=== PATIENT | female | born 1955 | race Caucasian/White ===

== ENCOUNTER 2024-07-03 08:13 | Outpatient (REF) | payer MEDICARE, SELFPAY ==
--- NOTE | ~2024-07-03 | XR_ITS ---
EXAMINATION: XR PELVIS CLINICAL INFORMATION: Hip pain COMPARISON: None available. TECHNIQUE: AP view of the pelvis. FINDINGS: No fracture. Hip joint spaces are maintained. The femoral heads are smooth. Alignment is anatomic. Sacroiliac joints and pubic symphysis are normal. No abnormal soft tissue calcifications. There are pelvic phleboliths. There are incompletely characterized degenerative changes of the lower lumbar spine. XR/XR pelvis 1-2V IMPRESSION: Unremarkable pelvis. Electronically signed by: Jose Post MD 07/30/2024 08:11 PM EDT RP
== END 2024-07-03 08:14 | disposition home or self-care (01) ==
LOC: HO.HOSX 08:13
PROVIDERS: Visit Provider Orthopaedic Surgery
DX: M25.559 Pain in unspecified hip (principal); M16.11 Unilateral primary osteoarthritis, right hip
CPT/HCPCS: 72170; 99202

== ENCOUNTER 2024-07-03 10:41 | Outpatient (AMB) | payer MEDICARE, SELFPAY ==
--- NOTE | 2024-07-03 11:25 | A.OFFVIS_ITS ---
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 Patient reports that she has had ongoing right hip pain for manly years now. She has history of intra-articular injection about 3 years ago which was very helpful. This gave her relief for about 3 months. She has pain all the time, worsened with increased activity. The pain is describes as a burning pain in the groin and buttock. Her pain does not radiate. 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 pain. She has occasional groin pain. It has gotten worse over the last month. She describes difficulty with sitting in daily activities. [facility] Surgical History (Updated 07/03/24 @ 11:31 by Amber Upton [facility]) H/O: section History of cholecystectomy Status post carpal tunnel release of both wrists History of right knee surgery Physical Exam Extrem Other: On exam she has minimal to no groin pain with impingement testing. Results Reviewed Results Reviewed: Mild bilateral hip osteoarthritis Assessment & Plan Assessment & Plan (1) Primary osteoarthritis of right hip: Code(s): M16.11 - Unilateral primary osteoarthritis, right hip Category: Medical Plan: This is a 68-year-old woman with mild hip arthritis and some pain. I discussed treatment options and recommended an injection with pain management. A referral was made. If this is helpful she can return to see me but her x-rays are unimpressive. Orders: Orders XR pelvis 1-2V 07/03/24 M25.559 - Pain in unspecified hip Referrals Pain Management Referral M16.11 - Unilateral primary osteoarthritis, right hip Coding Level of Care Code New Pt Level 3 (16251) Diagnoses Primary osteoarthritis of right hip M16.11
== END 2024-07-03 12:09 | disposition home or self-care (01) ==
PROVIDERS: PCP Nurse Practitioner Family; Visit Provider Orthopaedic Surgery
DX: M16.11 Unilateral primary osteoarthritis, right hip (principal)
CPT/HCPCS: 99203

== ENCOUNTER 2024-07-31 09:34 | Outpatient (AMB) | payer MEDICARE, SELFPAY ==
[2024-07-31 09:43] VITALS: BP 121/75; PULSE 81; O2SAT 97; BMI 36.9
--- NOTE | 2024-07-31 09:43 | MHC.OFFVIS ---
Vital Signs 07/31/24 09:43 Height 5 ft 4 in Weight 215 lb BMI 36.9 BP 121/75 Blood Pressure Location Rt brachial Position Sitting Pulse 81 Pulse Source Pulse Oximeter Pulse Oximetry (%) 97 Oxygen Delivery Method Room Air Intake Visit Reasons: Unilateral primary osteoarthritis, right hip Allergies meperidine [From Demerol] Allergy (Verified 07/31/24 09:44) Vomiting medrol dose pack Allergy (Uncoded 07/31/24 09:44) Hypertension Medication List - Last Reconciled 07/31/24 by Daniela Salazar amlodipine 5 mg PO DAILY atorvastatin 10 mg PO DAILY bupropion HCl XL 150 mg PO QAM escitalopram oxalate 10 mg PO DAILY levothyroxine 150 mcg PO .6x a week naltrexone 25 mg PO DAILY HPI Comments Details: Patrice is a very pleasant 68-year-old female who presents to the office today for evaluation management of her chronic right hip pain She was recently evaluated by Orthopedics and referred here for consideration of a right intra-articular hip injection Patient states she has been suffering with this pain for many years, about 3 years ago she had a right hip injection which gave her several months of relief. She is followed by ortho with the have not offer any other options. Told she is not a surgical candidate at this time as they congestion for hip does not warrant surgery recent hip and pelvis x-ray reviewed, results as per below Patient is going on vacation and is concerned about a pain with all the increased walking she will be doing Patient endorses anterior hip pain, right groin pain without radiation. Pain with walking and activity. Patient is done extensive home exercise program and stretching with Pilates but pain persists Finds relief with ibuprofen. Pain today is rated as 710, constant. Worse after activity/walking. In terms of muscle damage condition is described as dull, sore, aching, stabbing Pain is negatively impacting patient's enjoyment of life, general activity, sleep and recreational activities Denies implantable devices, pacemaker or defibrillator Denies nicotine or tobacco use Denies alcohol or illicit substance use Denies current use of anticoagulants PFSH Medical History (Updated 07/31/24 @ 11:13 by Codi Novak APRN, SHEET METAL LAYOUT MECHANIC) Arthritis High cholesterol Hypertension Hypothyroid Surgical History (Updated 07/03/24 @ 11:31 by Amber Upton [facility]) H/O: section History of cholecystectomy Status post carpal tunnel release of both wrists History of right knee surgery Review of Systems Const All systems reviewed & are unremarkable except as noted in HPI and below Physical Exam Vital Signs: Last Vital Signs Pulse 81 07/31/24 09:43 BP 121/75 07/31/24 09:43 Pulse Ox 97 07/31/24 09:43 Oxygen Delivery Method Room Air 07/31/24 09:43 BMI result Body Mass Index 36.9 General: awake, alert, oriented. Answers questions appropriately. Fully engaged in examination. Skin: warm, dry, intact HEENT: Normocephalic. Hearing intact. Cardiac: External chest normal in appearance. Respiratory: No cough, audible wheezing or stridor. Abdomen: without gross distension. MS: No obvious swelling or deformities. Able to transition from sit to stand unassisted. Ambulates with bilaterally normal heel strike and toe off Nontender over right PSIS Ga[place] negative Thigh thrust negative Pain with external rotation of the right hip Neurological: Oriented to person, place, time and situation. Thought process intact. No gait abnormalities appreciated. Psychiatric: Appropriate mood and affect. Good judgment and insight. Results Reviewed Results Reviewed: 07/03/24 XR/XR pelvis 1-2V No fracture. Hip joint spaces are maintained. The femoral heads are smooth. Alignment is anatomic. Sacroiliac joints and pubic symphysis are normal. No abnormal soft tissue calcifications. There are pelvic phleboliths. There are incompletely characterized degenerative changes of the lower lumbar spine. IMPRESSION: Unremarkable pelvis. Assessment & Plan Assessment & Plan (1) Primary osteoarthritis of right hip: Code(s): M16.11 - Unilateral primary osteoarthritis, right hip Category: Medical Plan Meloxicam 7.5 mg daily, take with food, do not take with the nasal nonsteroidal anti-inflammatory medications. Methocarbamol 500 mg p.o. t.i.d. as needed. Patient advised on cautions for use Patient was given a prescription for prednisone 40 mg p.o. daily she will not be able to receive this injection before she goes on vacation. She was advised to use this only if the pain becomes significantly worse after the excessive walking while on her trip. Patient has exhausted conservative therapy including home exercise program, stretching, nonsteroidal anti-inflammatory medications. We will schedule for fluoroscopy guided right intra-articular hip injection with local anesthetic. All questions and concerns were answered, patient agrees with the plan. Follow up after injection, sooner if needed Medications: New meloxicam Do not take with any other nonsteroidal anti-inflammatory medications 7.5 mg PO DAILY 14 tabs 0RF methocarbamol No driving while taking this medication. Do no take with alcohol or other SATELLITE PROJECT SITE MONITOR Depressants 500 mg PO TID PRN 30 tabs 0RF muscle spasm prednisone 40 mg (2 x 20 mg) PO DAILY 10 tabs 0RF Coding Level of Care Code New Pt Level 4 (33742) Complex EM visit Add On G2211 Diagnoses Primary osteoarthritis of right hip M16.11
== END 2024-07-31 10:24 | disposition home or self-care (01) ==
PROVIDERS: PCP Nurse Practitioner Family; Visit Provider Registered Nurse Emergency
DX: M16.11 Unilateral primary osteoarthritis, right hip (principal)
CPT/HCPCS: 99204; G2211

== ENCOUNTER → 2024-07-31 09:34 | Outpatient (BNVA) | payer MEDICARE, SELFPAY | PROVIDERS: PCP Nurse Practitioner Family; Visit Provider Registered Nurse Emergency | DX: M16.11 Unilateral primary osteoarthritis, right hip (principal) | CPT/HCPCS: 99202 ==

== ENCOUNTER 2024-09-16 06:19 | Outpatient (REF) | payer MEDICARE, SELFPAY | END 2024-09-16 06:20 | disposition home or self-care (01) | LOC: CF 06:19 | PROVIDERS: Visit Provider Anesthesiology | DX: M16.11 Unilateral primary osteoarthritis, right hip (principal) | CPT/HCPCS: 20610; J2003; J2795; J3301; Q9967 ==

== ENCOUNTER 2024-09-16 13:28 | Outpatient (AMB) | payer MEDICARE, SELFPAY ==
--- NOTE | 2024-09-16 13:35 | MHC.OFFVIS ---
Vital Signs 09/16/24 14:26 09/16/24 14:27 Height 5 ft 4 in 5 ft 4 in Weight 215 lb 215 lb BMI 36.9 36.9 BP 104/72 126/78 Blood Pressure Location Lt brachial Lt brachial Position Sitting Sitting Respiration 17 16 Pulse 75 63 Pulse Source Pulse Oximeter Pulse Oximeter Pulse Oximetry (%) 98 98 Oxygen Delivery Method Room Air Room Air Comment pre-op post-op Intake Visit Reasons: RIGHT INTRA-ARTICULAR HIP INJECTION Allergies meperidine [From Demerol] Allergy (Verified 09/16/24 14:28) Vomiting medrol dose pack Allergy (Uncoded 07/31/24 09:44) Hypertension PFSH Medical History (Updated 07/31/24 @ 11:13 by Codi Novak APRN, ASSOCIATE THEATRE PROFESSOR) Arthritis High cholesterol Hypertension Hypothyroid Surgical History (Updated 07/03/24 @ 11:31 by Amber Upton [facility]) H/O: section History of cholecystectomy Status post carpal tunnel release of both wrists History of right knee surgery Physical Exam Vital Signs: Last Vital Signs Pulse 63 09/16/24 14:27 Resp 16 09/16/24 14:27 BP 126/78 09/16/24 14:27 Pulse Ox 98 09/16/24 14:27 Oxygen Delivery Method Room Air 09/16/24 14:27 BMI result Body Mass Index 36.9 Assessment & Plan Assessment & Plan (1) Primary osteoarthritis of right hip: Code(s): M16.11 - Unilateral primary osteoarthritis, right hip Category: Medical Plan Right Intra-articular hip injection. Informed consent was explained to the patient. All questions were explained and answered.? The patient was taken inside of the operating room where he was positioned left lateral decubitus on operating table. Time-out was performed delineating patient's name and date of , correct site, side, the nature of the procedure, patient's allergy, preoperative antibiotic if needed, need for VT prophylaxis..? All operating room staff was participating in OR time-out procedure. Right hip area of the patient was prepped with ChloraPrep and draped with sterile towels.? Sterilely draped C-arm was brought over the operating field and picture of left and right lateral views of the bilateral hip joints were delineated on the screen.? The smaller joint silhouette was chosen as the target.? Direction of the femoral neck was noted and the projection of that direction was delineated on the skin with skin markers.? Projection of the right trochanter to the skin was chosen as the initial needle insertion point.? After that the skin and subcutaneous tissues was anesthetized with 2% lidocaine 2.5 mL.? 22 gauge 5 in long needle was inserted through the skin and started to advance to the joint space under anterior posterior view.? When needle entered the capsule of the joint small amount of the contrast was injected delineating intra-articular space.? After that treatment solution containing ropivacaine 0.5% 4 mL mixed with 40 mg of Kenalog was injected into the joint.? The needle was withdrawn sterile Band-Aid was applied. Orders: Orders FL guidance in treatment room 09/16/24 M16.11 - Unilateral primary osteoarthritis, right hip Coding Level of Care Code Procedure Only Diagnoses Primary osteoarthritis of right hip M16.11
[2024-09-16 14:26] VITALS: BP 104/72; PULSE 75; RESP 17; O2SAT 98; BMI 36.9
[2024-09-16 14:27] VITALS: BP 126/78; PULSE 63; RESP 16; O2SAT 98; BMI 36.9
== END 2024-09-16 14:20 | disposition home or self-care (01) ==
LOC: HO.PMCPRC 13:28
PROVIDERS: PCP Nurse Practitioner Family; Visit Provider Anesthesiology
DX: M16.11 Unilateral primary osteoarthritis, right hip (principal)
CPT/HCPCS: 20610; 77002

== ENCOUNTER 2024-10-08 13:35 | Outpatient (AMB) | payer MEDICARE, SELFPAY ==
[2024-10-08 13:57] VITALS: BP 128/74; PULSE 74; O2SAT 96; BMI 34.0
--- NOTE | 2024-10-08 13:57 | MHC.OFFVIS ---
Vital Signs 10/08/24 13:57 Height 5 ft 4 in Weight 198 lb BMI 34.0 BP 128/74 Blood Pressure Location Rt brachial Position Sitting Pulse 74 Pulse Source Pulse Oximeter Pulse Oximetry (%) 96 Oxygen Delivery Method Room Air Intake Visit Reasons: RIGHT INTRA-ARTICULAR HIP INJECTION Allergies meperidine [From Demerol] Allergy (Verified 10/08/24 13:58) Vomiting medrol dose pack Allergy (Uncoded 10/08/24 13:58) Hypertension Medication List - Last Reconciled 10/08/24 by Daniela Salazar amlodipine 5 mg PO DAILY atorvastatin 10 mg PO DAILY bupropion HCl XL 150 mg PO QAM escitalopram oxalate 10 mg PO DAILY levothyroxine 150 mcg PO .6x a week meloxicam 7.5 mg PO DAILY methocarbamol 500 mg PO TID PRN naltrexone 25 mg PO DAILY prednisone 40 mg (2 x 20 mg) PO DAILY secukinumab (Cosentyx 300 mg/2 Syringes () mg subcut HPI Comments Details: Patient presents back to the office today for follow-up, 1 month status post right intra-articular hip injection She reports pain today is 0/10. 100% pain relief with improvement in functional ability after the injection Denies any untoward effects Intake note: Patrice is a very pleasant 68-year-old female who presents to the office today for evaluation management of her chronic right hip pain She was recently evaluated by Orthopedics and referred here for consideration of a right intra-articular hip injection Patient states she has been suffering with this pain for many years, about 3 years ago she had a right hip injection which gave her several months of relief. She is followed by ortho with the have not offer any other options. Told she is not a surgical candidate at this time as they congestion for hip does not warrant surgery recent hip and pelvis x-ray reviewed, results as per below Patient is going on vacation and is concerned about a pain with all the increased walking she will be doing Patient endorses anterior hip pain, right groin pain without radiation. Pain with walking and activity. Patient is done extensive home exercise program and stretching with Pilates but pain persists Finds relief with ibuprofen. Pain today is rated as 710, constant. Worse after activity/walking. In terms of muscle damage condition is described as dull, sore, aching, stabbing Pain is negatively impacting patient's enjoyment of life, general activity, sleep and recreational activities Denies implantable devices, pacemaker or defibrillator Denies nicotine or tobacco use Denies alcohol or illicit substance use Denies current use of anticoagulants [facility] Medical History (Updated 07/31/24 @ 11:13 by Codi Novak APRN, HARP ACTION ASSEMBLER) Arthritis High cholesterol Hypertension Hypothyroid Surgical History (Updated 07/03/24 @ 11:31 by Amber Upton [facility]) H/O: section History of cholecystectomy Status post carpal tunnel release of both wrists History of right knee surgery Review of Systems Const All systems reviewed & are unremarkable except as noted in HPI and below Physical Exam Vital Signs: Last Vital Signs Pulse 74 10/08/24 13:57 BP 128/74 10/08/24 13:57 Pulse Ox 96 10/08/24 13:57 Oxygen Delivery Method Room Air 10/08/24 13:57 BMI result Body Mass Index 34.0 General: awake, alert, oriented. Answers questions appropriately. Fully engaged in examination. Skin: warm, dry, intact HEENT: Normocephalic. Hearing intact. Cardiac: External chest normal in appearance. Respiratory: No cough, audible wheezing or stridor. Abdomen: without gross distension. MS: No obvious swelling or deformities. Able to transition from sit to stand unassisted. Ambulates with bilaterally normal heel strike and toe off Neurological: Oriented to person, place, time and situation. Thought process intact. No gait abnormalities appreciated. Psychiatric: Appropriate mood and affect. Good judgment and insight. Results Reviewed Results Reviewed: 07/03/24 XR/XR pelvis 1-2V No fracture. Hip joint spaces are maintained. The femoral heads are smooth. Alignment is anatomic. Sacroiliac joints and pubic symphysis are normal. No abnormal soft tissue calcifications. There are pelvic phleboliths. There are incompletely characterized degenerative changes of the lower lumbar spine. IMPRESSION: Unremarkable pelvis. Assessment & Plan Assessment & Plan (1) Primary osteoarthritis of right hip: Code(s): M16.11 - Unilateral primary osteoarthritis, right hip Category: Medical Plan Patient presents back to the office today for follow-up, 1 month status post right intra-articular hip injection Reports 100% pain relief with improvement in functional ability since the injection Denies any untoward effects of the injection All questions and concerns were answered, patient agrees with the plan. Follow up when pain returns, sooner if needed Coding Level of Care Code Est Pt Level 3 (44062) Complex EM visit Add On G2211 Diagnoses Primary osteoarthritis of right hip M16.11
== END 2024-10-08 14:11 | disposition home or self-care (01) ==
PROVIDERS: PCP Nurse Practitioner Family; Visit Provider Registered Nurse Emergency
DX: M16.11 Unilateral primary osteoarthritis, right hip (principal)
CPT/HCPCS: 99213; G2211

== ENCOUNTER → 2024-10-08 13:35 | Outpatient (BNVA) | payer MEDICARE, SELFPAY | PROVIDERS: PCP Nurse Practitioner Family; Visit Provider Registered Nurse Emergency | DX: M16.11 Unilateral primary osteoarthritis, right hip (principal) | CPT/HCPCS: 99212 ==

== ENCOUNTER 2025-03-18 13:01 | Outpatient (REF) | payer MEDICARE, SELFPAY ==
--- NOTE | ~2025-03-18 | FL_ITS ---
RIGHT HIP ARTHROGRAM INDICATIONS: Chronic right hip pain. Intra-articular injection of dilute gadolinium contrast for right hip MRI arthrogram. COMPARISON: None. PROCEDURE: Risks and benefits and possible complications were discussed with the patient and consent was obtained. The patient was placed supine on the fluoroscopy table. Suitable access site was identified using fluoroscopy. The right hip was then prepped and draped in normal sterile fashion. 1% buffered lidocaine was used for anesthesia for the skin and subcutaneous soft tissues. Subsequently, A 22-gauge spinal needle was directed into the joint. Intra-articular position of the needle within the hip joint was verified using a small amount of Omnipaque 300. Subsequently, a total of 7 mL (of a mixture of 2 mL 1% lidocaine , 0.1 mL Gadavist, and 5 mL of Omnipaque 300) was then injected into the right hip joint under fluoroscopic guidance. The needle was then removed and a Band-Aid was applied to the injection site. The patient tolerated the procedure well. There were no immediate complications. FL/FL arthrogram hip RT IMPRESSION: Successful intra-articular administration of dilute gadolinium contrast into the right hip joint. The patient will undergo subsequent MRI. Electronically signed by: Gagan Pablo MD 03/18/2025 02:28 PM EDT
--- NOTE | ~2025-03-18 | MR_ITS ---
EXAMINATION: MR ARTHROGRAM RIGHT HIP CLINICAL INFORMATION: Chronic right hip pain,? OA versus labral tear. COMPARISON: Fluoroscopic arthrogram performed earlier same day. Hip x-rays 07/03/2024. TECHNIQUE: MRI of the right hip was performed after the intra-articular administration of dilute Gadavist contrast, utilizing standard sequences. Examination was performed on the 1.5 Trina high-field magnet. FINDINGS: There is adequate distention of the right hip intra-articular space with dilute gadolinium contrast. There is high T1 signal throughout the anterior superior labrum , which is somewhat irregular, and consistent with tearing. There is moderate osteoarthrosis of the right hip joint, with small subcapital osteophytes, mild remodeling of the acetabulum, and essentially full-thickness cartilage loss of the mid and inferior acetabulum, and portions of the femoral head. There is irregular subchondral bone plate edema with mild cystic changes throughout the acetabulum and involving portions of the mid and superior femoral head, in keeping with osteoarthrosis. The joint capsule appears intact. There is mildly increased signal abutting the greater trochanter, involving the gluteus medius and minimus tendons, in keeping with the abductor tendinitis. There is associated mild greater trochanteric bursitis. The iliopsoas tendon and muscle appear intact and normal. The adductor musculature appears grossly normal. The obturator internus and externus muscles appear normal. There is mild enthesopathy of the right hamstrings insertion. No abnormality involving the sciatic nerve bundle, or quadratus femoris muscle. Within the pelvis, are partially imaged uterine fibroid tumors. Largest is within the midline fundus measuring 1.5 cm in diameter. There is a small amount of free pelvic fluid within the cul-de-sac, abnormal in this age group. The urinary bladder is decompressed. There is diverticulosis of the imaged sigmoid colon. The rectum appears normal. There is no abnormal lymphadenopathy present. MR/MR hip RT w con IMPRESSION: 1. There is moderate to severe osteoarthrosis of the right hip joint as described. There is moderate subchondral bone plate edema of the acetabulum and femoral head with regional full-thickness cartilage loss. 2. There is irregular tearing of the anterior/superior right hip labrum. 3. There is mild to moderate abductor tendinopathy of the gluteus medius and elements tendons. There is associated mild greater trochanteric bursitis. 4. There is mild enthesopathy of the right hamstrings insertion. 5. There are incidentally noted uterine fibroid tumors measuring up 1.5 cm. There is a small amount of free fluid within the pelvis, nonspecific but atypical in a 69-year-old female. Electronically signed by: Gagan Pablo MD 03/20/2025 09:15 AM EDT
[2025-03-18] MEDS: iohexoL 300 MG/ML 50 ML INFUS..BTL 10 ML INTRAARTIC (14:09)
[2025-03-18] MEDS: Lidocaine HCl 1 % MPF 30 ML VIAL INTRAARTIC (14:10)
--- OUTSIDE RECORDS SUMMARY | 2025-03-18 14:18 | XMS_ITS | Clinical Summary ---
Author Organization [employer] Address [address] [place] [address] Care Team Providers Care Cardiac Care Unit Nurse Name Role Phone Chelsea Vazquez Primary Care Provider [phone] Mariza Bzaan MD Unavailable Allergies Active Allergy Reactions Criticality Noted Date Comments Meperidine Vomiting High 11/08/2021 Meperidine Hcl Vomiting High 07/22/2024 Methylprednisolone Other 11/08/2021 Stroke level BP Medications secukinumab (Cosentyx Sensoready Pen) 150 MG/ML self-injector pen Inject 150 mg under the skin. 01/08/2023 Active ALPRAZolam (Xanax) 0.5 MG tablet Take 0.5 mg by mouth if needed in the morning, at noon, and at bedtime for anxiety. As needed 10/02/2022 Active amLODIPine (Norvasc) 2.5 MG tablet Take 7.5 mg by mouth Once per day. Active atorvastatin (Lipitor) 10 MG tablet Take 10 mg by mouth Once per day. 07/14/2024 Active escitalopram (Lexapro) 10 MG tablet TAKE 1/2 tablet BY MOUTH DAILY FOR 7 DAYS THEN INCREASE TO TAKE 1 tablet DAILY 07/03/2024 Active levothyroxine (Synthroid, Levoxyl) 150 MCG tablet Take 150 mcg by mouth Once per day. Active meloxicam (Mobic) 7.5 MG tablet TAKE 1 TABLET BY MOUTH ONCE DAILY WITH food. DO not TAKE WITH other nsaids 07/31/2024 Active buPROPion XL (Wellbutrin XL) 150 MG 24 hr tabletIndicatio ns:BMI 37.0-37.9, adult,Pre-diabe javid Take 1 tablet (150 mg) by mouth in the morning. Do not crush, chew, or split. 90 tablet 3 12/25/2024 12/25/19 26 Active naltrexone (Depade) 50 MG tabletIndicatio ns:BMI 37.0-37.9, adult,Pre-diabe javid Take 1 tablet (50 mg) by mouth Once per day. 90 tablet 3 12/25/2024 12/25/19 26 Active Active Problems Problem Noted Date Diagnosed Date Pre-diabetes 01/30/2025 Overview (01/30/2025): continue low carb/sugar diet and intermittent fasting; aim for at least 1500 calories daily so as to not deprive yourself H/O degenerative disc disease 07/22/2024 Abdominal bloating 07/22/2024 Anxiety 07/22/2024 Arthritis 07/22/2024 Chronic cough 07/22/2024 Depression 07/22/2024 Environmental and seasonal allergies 07/22/2024 Fibroid, uterine 07/22/2024 Hypertension 07/22/2024 Hypothyroid 07/22/2024 Osteopenia 07/22/2024 Psoriasis 07/22/2024 Severe obesity (BMI 35.0-39.9) with comorbidity 07/22/2024 Encounters Date Type Department Care Team Description 03/02/2025 12:15 PM EDT Clinical Support [facility] [address] [place] [address] Class 1 obesity due to excess calories without serious comorbidity with body mass index (BMI) of 31.0 to 31.9 in adult (Primary Dx); Pre-diabetes 03/02/2025 Travel 02/23/2025 Travel 02/16/2025 Travel 01/19/2025 12:00 PM EST Clinical Support [facility] [address] [place] [address] Pre-diabetes (Primary Dx); BMI 32.0-32.9,adult; Class 1 obesity due to excess calories without serious comorbidity with body mass index (BMI) of 32.0 to 32.9 in adult; Dietary counseling; Exercise counseling 01/19/2025 Travel 01/12/2025 Travel 12/25/2024 9:00 AM EST Office Visit [facility] [address] [place] [address] Mariza Bazan MD Pre-diabetes (Primary Dx); Primary hypertension; BMI 37.0-37.9, adult; Severe obesity (BMI 35.0-39.9) with comorbidity (CMS/HCC); Pre-diabetes 12/18/2024 Travel from Last 3 Months Social History Tobacco Use Types Packs/Day Years Used Date Smoking Tobacco: Former Cigarettes Smokeless Tobacco: Never Tobacco Cessation:Counseling Given: Not Answered Alcohol Use Standard Drinks/Week Comments Yes 0 (1 standard drink = 0.6 oz pur e alcohol) Comments Unknown Sex and Gender Information Value Date Recorded Sex Assigned at Female 05/01/2024 12:58 PM EDT Legal Sex Female 12:51 PM EDT Gender Identity Female 05/01/2024 12:58 PM EDT Sexual Orientation Straight 05/01/2024 12 :58 PM EDT Last Filed Vital Signs Vital Sign Reading Time Taken Comments Blood Pressure 111/71 12/25/2024 9:01 AM EST Pulse 62 12/25/2024 9:01 AM EST Temperature 36.4 ??C (97.5 ??F) 12/25/2024 9:01 AM ES T Respiratory Rate 16 12/25/2024 9:01 AM EST Oxygen Saturation - - Inhaled Oxygen Concentration - - Weight 83.9 kg (185 lb) 03/02/2025 12:38 AM EDT Height 162.6 cm (5' 4 ) 03/02/2025 12:38 AM EDT Body Mass Index 31.76 03/02/2025 12:38 AM EDT Plan of Treatment Upcoming Encounters Date Type Department Care Team (Late st Contact Info) Description 03/31/2025 12:30 PM EDT Office Visit [facility] [address] [place] [address] Mariza Bazan MD [address] [place] [id number] 05/04/2025 12:15 PM EDT Clinical Support [facility] [address] [place] [address] [place] [id number] Health Maintenance Due Date Last Done Comments CT Colonography 1954 Colonoscopy 1954 Colorectal Cancer Screening 1954 Depression Screening 1954 FIT DNA/Cologuard 1954 FIT 1954 FOBT 1954 SDOH Screening 1954 Sigmoidoscopy 1954 Alcohol/Substance Use Screening 1966 Hepatitis C Screening 1972 DTaP/Tdap/Td Vaccines (1 - Tdap) 1973 Mammogram 1994 COVID-19 Vaccine ( season) 2024 09/11/2022, 09/22/2021, 02/19/2021, Additional history exists Tobacco Screening 08/29/2025 08/29/2024 Diabetes: Hemoglobin A1C 12/25/2025 12/25/2024, 09/0 01/2024 Lipid Panel 07/08/2029 07/08/2024 RSV Patients and Patients Aged 60 years or older (1 - 1-dose 75+ series) 2029 Zoster Vaccines Completed 12/08/2020, 10/06/2020 Pneumococcal Vaccine: 50+ Years Completed 12/08/2021, 09/02/2020 Influenza Vaccine Completed 10/13/2024, , 09/11/2022, Additional history exists HIB Vaccines Aged Out No longer eligi ble based on patient's age to complete this topic HPV Vaccines Aged Out No longer eligi ble based on patient's age to complete this topic Hepatitis A Vaccines Aged Out No long er eligible based on patient's age to complete this topic Hepatitis B Vaccines Aged Out No long er eligible based on patient's age to complete this topic IPV Vaccines Aged Out No longer eligi ble based on patient's age to complete this topic Meningococcal Vaccine Aged Out No kaiden odilon eligible based on patient's age to complete this topic RSV under 20 months Aged Out No longe r eligible based on patient's age to complete this topic Rotavirus Vaccines Aged Out No longer eligible based on patient's age to complete this topic Procedures Procedure Name Priority Date/Time Associated Diagnosis Comments POCT GLYCOSYLATED HEMOGLOBIN (HGB A1C) Routine 12/25/2024 9:16 AM EST Pre-diabetes LIPID PANEL, STANDARD Routine 07/08/2024 9:45 AM EDT from Last 3 Months or Most Recently Relevant to Health Maintenance Results * (ABNORMAL) POCT glycosylated hemoglobin (Hgb A1c) (12/25/2024 9:16 AM EST) Hemoglobin A1C 5.9 4.0 - 6.0 % Blood Capillary blood specimen / Unknown 12/25/2024 9:16 AM EST us Mariza Bazan MD POINT OF CARE TEST ENTER/EDIT OR DERABLES Final Result * Lipid Panel, Standard (07/08/2024 9:45 AM EDT) Blood Venous blood specimen / Unknown us Mariza Bazan MD LAB BLOOD ORDERABLES Final Resul t from Last 3 Months or Most Recently Relevant to Health Maintenance Insurance [facility] MED [facility] MEDICARE Care Teams Cardiac Care Unit Nurse Relationship Specialty Start Date End Date Chelsea Vazquez [address] [place] [id number] PCP - General 05/01/24 Mariza Bazan MD [address] [place] [id number] Referring Physician Internal Medicine 05/01/24
--- OUTSIDE RECORDS SUMMARY | 2025-03-18 14:18 | XMS_ITS | Clinical Summary ---
Author Organization [facility] Address [address] [place] [address] Care Team Providers Care Lead Technical Architect Name Role Phone Chelsea Vazquez NP Primary Care Provider [phone] Allergies Active Allergy Reactions Criticality Noted Date Comments Meperidine 11/08/2021 Methylprednisolone 11/08/2021 Medications Medication Sig Dispensed Refills Start Date End Date Status amLODIPine (NORVASC) tablet 5 mg Take 5 mg by mouth daily. 0 10/31/2021 Active omeprazole (PriLOSEC) 20 MG capsule Take 20 mg by mouth daily. 0 10/11/2021 Active levothyroxine (SYNTHROID) tablet 100 mcg Take 100 mcg by mouth every morning on an empty stomach. 0 Active LORazepam (Ativan) 1 MG tablet Take 1 tab two hours before your MRI, take 2nd tab thirty minutes before your MRI 2 tablet 0 11/08/2021 Active Social History Tobacco Use Types Packs/Day Years Used Date Smoking Tobacco: Never Assessed Sex and Gender Information Value Date Recorded Sex Assigned at Not on file Gender Identity Not on file Sexual Orientation Not on file Job Start Date Occupation Industry Not on file Not on file Not on file Last Filed Vital Signs Vital Sign Reading Time Taken Comments Blood Pressure - - Pulse - - Temperature - - Respiratory Rate - - Oxygen Saturation - - Inhaled Oxygen Concentration - - Weight 95.3 kg (210 lb) 11/08/2021 11:38 AM EST Height 165.1 cm (5' 5 ) 11/08/2021 11:38 AM EST Body Mass Index 34.95 11/08/2021 11:38 AM EST Plan of Treatment Health Maintenance Due Date Last Done Comments Hepatitis C Screening 1954 COVID-19 Vaccine (#1) 04/24/1955 Depression Screening 1966 BMI Counseling 1972 Preventative Health Evaluation 1972 DTap / Tdap / Td (1 - Tdap) 1973 Colon Cancer Screening (Colonoscopy) 1999 Breast Cancer Screening (Mammogram) 2004 Shingrix-Zoster Vaccine (1 of 2) 2004 Fall Risk Assessment 2019 Osteoporosis Screening (DEXA Scan) 2019 Pneumococcal Vaccine (1 of 1 - PCV) 2019 Influenza Vaccine (#1) 2024 RSV Adult > 60+ Yrs or Pregn ant (1 - 1-dose 75+ series) 2029 Hepatitis B Vaccines Aged Out No long er eligible based on patient's age to complete this topic RSV Ped < 20 months Aged Out No longe r eligible based on patient's age to complete this topic Care Teams Lead Technical Architect Relationship Specialty Start Date End Date Chelsea Vazquez NP [address] [place] [address] [facility] [place] [id number] PCP - General Family Medicine 10/26/21
--- OUTSIDE RECORDS SUMMARY | 2025-03-18 14:18 | XMS_ITS | Encounter Summary ---
Author Organization [employer] Address [address] [place] [address] 7[address] [place] [address] Care Team Providers Care Surface Room Shop Optician Name Role Phone Chelsea Vazquez Primary Care Provider Mariza Bazan MD Unavailable Encounter Details Date Type Department Care Team (Late st Contact Info) Description 08/19/2024 Orders Only [facility] Information Management [address] [place] [address] Mariza Bazan MD [address] [place] [address] Social History Tobacco Use Types Packs/Day Years Used Date Smoking Tobacco: Former Cigarettes Smokeless Tobacco: Never Alcohol Use Standard Drinks/Week Comments Yes 0 (1 standard drink = 0.6 oz pur e alcohol) Comments Unknown Sex and Gender Information Value Date Recorded Sex Assigned at Female 05/01/2024 12:58 PM EDT Legal Sex Female 12:51 PM EDT Gender Identity Female 05/01/2024 12:58 PM EDT Sexual Orientation Straight 05/01/2024 12 :58 PM EDT documented as of this encounter Plan of Treatment Upcoming Encounters Date Type Department Care Team (Late st Contact Info) Description 03/31/2025 12:30 PM EDT Office Visit [facility] MED[facility] [address] [place] [address] Mariza Bazan MD [address] [place] [address] 05/04/2025 12:15 PM EDT Clinical Support [facility] NUTRITION [address] [place] [address] Lynette Rodriguez, NEVILLE [address] [place] [address] documented as of this encounter Procedures Procedure Name Priority Date/Time Associated Diagnosis Comments LIPID PANEL, STANDARD Routine 07/08/2024 9:45 AM EDT documented in this encounter Results * Lipid Panel, Standard (07/08/2024 9:45 AM EDT) Blood Venous blood specimen / Unknown Mariza Bazan MD LAB BLOOD ORDERABLES Final Resul t documented in this encounter Visit Diagnoses Not on filedocumented in this encounter Care Teams Surface Room Shop Optician Relationship Specialty Start Date End Date Chelsea Vazquez [address] [place] [id number] PCP - General 05/01/24 Mariza Bazan MD [address] [place] [address] Referring Physician Internal Medicine 05/01/24 documented as of this encounter
[2025-03-18] MEDS: gadobutroL 2 ML VIAL IVPUSH (14:55)
[2025-05-11] MEDS: gadobutroL 2 ML VIAL IVPUSH (10:05)
== END 2025-03-18 13:02 | disposition home or self-care (01) ==
LOC: HO.XRAY 13:01
PROVIDERS: PCP Nurse Practitioner Family; Visit Provider Orthopaedic Surgery
DX: M25.551 Pain in right hip (principal); M16.11 Unilateral primary osteoarthritis, right hip; M67.951 Unspecified disorder of synovium and tendon, right thigh; D25.9 Leiomyoma of uterus, unspecified
CPT/HCPCS: 27093; 73525; 73722; A9585; J2003; Q9967

== ENCOUNTER → 2025-03-18 13:22 | Outpatient (BNV) | payer MEDICARE, SELFPAY | PROVIDERS: PCP Nurse Practitioner Family; Visit Provider Radiology Diagnostic Radiology | DX: M25.551 Pain in right hip (principal) | CPT/HCPCS: 27093; 73525 ==

== ENCOUNTER 2025-04-15 08:52 | Outpatient (REF) | payer MEDICARE, SELFPAY ==
[2025-04-15 09:09] LABS: MANUAL DIFF FLAG NO
--- OUTSIDE RECORDS SUMMARY | 2025-04-15 09:16 | XMS_ITS | Clinical Summary ---
Author Organization [facility] [facility] Address [address] [facility] 7t [place] [address] Care Team Providers Care Nurse Practitioner Manager Name Role Phone Chelsea Vazquez Primary Care Provider [phone] Mariza Bazan MD Unavailable Allergies Active Allergy Reactions Criticality Noted Date Comments Meperidine Vomiting High 11/08/2021 Meperidine Hcl Vomiting High 07/22/2024 Methylprednisolone Other 11/08/2021 Stroke level BP Medications secukinumab (Cosentyx Sensoready Pen) 150 MG/ML self-injector pen Inject 150 mg under the skin. 01/08/20 23 Active ALPRAZolam (Xanax) 0.5 MG tablet Take 0.5 mg by mouth if needed in the morning, at noon, and at bedtime for anxiety. As needed 10/02/20 22 Active amLODIPine (Norvasc) 2.5 MG tablet Take 7.5 mg by mouth Once per day. Active atorvastatin (Lipitor) 10 MG tablet Take 10 mg by mouth Once per day. 07/14/20 24 Active escitalopram (Lexapro) 10 MG tablet TAKE 1/2 tablet BY MOUTH DAILY FOR 7 DAYS THEN INCREASE TO TAKE 1 tablet DAILY 07/03/20 24 Active levothyroxine (Synthroid, Levoxyl) 150 MCG tablet Take 150 mcg by mouth Once per day. Active meloxicam (Mobic) 7.5 MG tablet TAKE 1 TABLET BY MOUTH ONCE DAILY WITH food. DO not TAKE WITH other nsaids 07/31/20 24 Active naltrexone (Depade) 50 MG tabletIndicati ons:BMI 37.0-37.9, adult,Pre-diab etes Take 1 tablet (50 mg) by mouth Once per day. 90 tablet 3 12/25/19 25 026 Active buPROPion XL (Wellbutrin XL) 300 MG 24 hr tabletIndicati ons:BMI 37.0-37.9, adult,Pre-diab etes Take 1 tablet (300 mg) by mouth in the morning. Do not crush, chew, or split. 90 tablet 3 03/31/20 25 026 Active buPROPion XL (Wellbutrin XL) 150 MG 24 hr tabletIndicati ons:BMI 37.0-37.9, adult,Pre-diab etes Take 1 tablet (150 mg) by mouth in the morning. Do not crush, chew, or split. 90 tablet 3 12/25/19 25 025 Discontinued(Re order (will not trigger notification to Pharmacy)) Active Problems Problem Noted Date Diagnosed Date [...] Encounters Date Type Department Care Team Description 03/31/2025 12:30 PM EDT Office Visit [facility] MEDICAL [address] [place] [address] Mariza Bazan MD Primary hypertension (Primary Dx); Pre-diabetes; BMI 37.0-37.9, adult; Pre-diabetes 03/25/2025 Travel 03/02/2025 12:15 PM EDT Clinical Support [facility] NUTRITION [address] [place] [address] Class 1 obesity due to excess calories without serious comorbidity with body mass index (BMI) of 31.0 to 31.9 in adult (Primary Dx); Pre-diabetes 03/02/2025 Travel 02/23/2025 Travel 02/16/2025 Travel 01/19/2025 12:00 PM EST Clinical Support [facility] NUTRITION [address] [place] [address] Pre-diabetes (Primary Dx); BMI 32.0-32.9,adult; Class 1 obesity due to excess calories without serious comorbidity with body mass index (BMI) of 32.0 to 32.9 in adult; Dietary counseling; Exercise counseling 01/19/2025 Travel from Last 3 Months Social History [...] Sign Reading Time Taken Comments Blood Pressure 122/81 03/31/2025 12:19 PM EDT Pulse 66 03/31/2025 12:19 PM EDT Temperature 37.1 ??C (98.7 ??F) 03/31/2025 12:19 PM E DT Respiratory Rate 16 12/25/2024 9:01 AM EST Oxygen Saturation - - Inhaled Oxygen Concentration - - Weight 85.3 kg (188 lb) 03/31/2025 12:19 PM EDT Height 162.6 cm (5' 4 ) 03/02/2025 12:38 AM EDT Body Mass Index 32.27 03/02/2025 12:38 AM EDT Plan of Treatment Upcoming Encounters Date Type Department Care Team (Late st Contact Info) Description 05/04/2025 12:15 PM EDT Clinical Support [facility] NUTRITION [address] [place] [address] [place] [address] 06/02/2025 10:00 AM EDT Office Visit [facility] MED[facility] [address] [place] [address] Mariza Bazan MD [address] [place] [address] Health Maintenance Due Date Last Done Comments CT Colonography 1954 Colonoscopy 1954 Colorectal Cancer Screening 1954 Depression Screening 1954 FIT DNA/Cologuard 1954 FIT 1954 FOBT 1954 SDOH Screening 1954 Sigmoidoscopy 1954 Alcohol/Substance Use Screening 1966 Hepatitis C Screening 1972 DTaP/Tdap/Td Vaccines (1 - Tdap) 1973 Mammogram 1994 COVID-19 Vaccine ( season) 2024 09/11/2022, 09/22/2021, 02/19/2021, Additional history exists Tobacco Screening 08/29/2025 08/29/2024 Lipid Panel 07/08/2029 07/08/2024 RSV Patients and [...] patient's age to complete this topic Meningococcal B Vaccine Aged Out No l onger eligible based on patient's age to complete [...] Comments POCT GLYCOSYLATED HEMOGLOBIN (HGB A1C) Routine 03/31/2025 12:50 PM EDT Pre-diabetes LIPID PANEL, STANDARD Routine 07/08/2024 9:45 AM EDT from Last 3 Months or Most Recently Relevant to Health Maintenance Results * POCT glycosylated hemoglobin (Hgb A1c) (03/31/2025 12:50 PM EDT) Hemoglobin A1C 5.6 4.0 - 6.0 % Blood Capillary blood specimen / Unknown 03/31/2025 12:50 PM EDT us Mariza Bazan MD POINT OF CARE TEST ENTER/EDIT OR DERABLES Final Result * Lipid Panel, Standard (07/08/2024 9:45 AM EDT) Blood Venous blood specimen / Unknown us Mariza Bazan MD LAB BLOOD ORDERABLES Final Resul t from Last 3 Months or Most Recently Relevant to Health Maintenance Insurance [facility] [employer] MEDICARE Care Teams Nurse Practitioner Manager Relationship Specialty Start Date End Date Chelsea Vazquez [address] [place] [address] PCP - General 05/01/24 Mariza Bazan MD [address] [place] [address] Referring Physician Internal Medicine 05/01/24
[2025-04-15 09:39] LABS: Basophils Percent Auto 0.7 % (0-2); Eosinophils Absolute Auto 0.1 X10*3/uL (0.0-0.4); Eosinophils Percent Auto 2.2 % (0-4); Hematocrit 43.8 % (37.0-47.0); Hemoglobin 14.5 g/dl (12.0-16.0); Imm Gran Abs Auto 0.02 X10*3/uL (0.00-0.03); Imm Gran Pct Auto 0.4 % (0.0-0.4); Lymphocytes Absolute Auto 1.3 X10*3/uL (1.2-4.9); Lymphocytes Percent Auto 23.7 % (20-40); Mean Corpuscular HGB Conc 33.1 g/dl (31.0-35.0); Mean Corpuscular Hemoglobin 32.4 pg (27.0-33.0); Mean Platelet Volume 9.4 fL (9.4-12.3); Monocytes Absolute Auto 0.6 X10*3/uL (0.1-1.2); Monocytes Percent Auto 10.2 % (2-11); Neutrophils Absolute Auto 3.4 x10*3/uL (2.0-8.3); Neutrophils Percent Auto 62.8 % (45-73); Platelet Count 213 X10*3/uL (160-400); Red Blood Count 4.47 X10*6/uL (4.20-5.50); Red Cell Distribution Width 12.5 % (11.0-16.0); White Blood Count 5.4 X10*3/uL (4.8-10.8)
[2025-04-15 10:38] LABS: Alanine Aminotransferase 25 U/L (0-31); Albumin Level 4.6 g/dL (3.5-5.0); Alkaline Phosphatase 93 U/L (39-117); Anion Gap 9 (12-20); Aspartate Amino Transferase 22 U/L (5-31); Bilirubin Total 0.3 mg/dL (0.0-1.0); Blood Urea Nitrogen 16 mg/dL (9-16); Calcium 10.1 mg/dL (8.4-10.2); Carbon Dioxide 29 mmol/L (22-29); Chloride 106 mmol/L (96-108); Cholesterol 141 mg/dL (<200); Estimated Glomerular Filt Rate > 60; Glucose Random 97 mg/dL (60-115); HDL Cholesterol 53 mg/dL (>40); LDL Cholesterol Calculated 71 mg/dL (<100); Potassium 4.3 mmol/L (3.3-5.1); Sodium 140 mmol/L (135-145); Triglycerides 85 mg/dL (<150)
[2025-04-15 10:46] LABS: TSH reflex Free T4 0.08 uIU/mL (0.32-4.0)
== END 2025-04-15 08:53 | disposition home or self-care (01) ==
LOC: HO.LAB 08:52
PROVIDERS: PCP Nurse Practitioner Family; Visit Provider Nurse Practitioner Family
DX: E03.9 Hypothyroidism, unspecified (principal); E78.5 Hyperlipidemia, unspecified; I10 Essential (primary) hypertension; M16.11 Unilateral primary osteoarthritis, right hip; R73.03 Prediabetes
CPT/HCPCS: 36415; 80053; 80061; 84439; 84443; 85025

== ENCOUNTER 2025-07-02 08:36 | Outpatient (REF) | payer MEDICARE, SELFPAY ==
--- NOTE | ~2025-07-02 | XR_ITS ---
EXAMINATION: XR KNEE 3 VIEWS RIGHT HISTORY: M25.561 - Pain in right knee COMPARISON: There are no prior studies available for comparison. FINDINGS: Three views of the right knee are submitted. Osseous mineralization is normal. There is no fracture or dislocation. There is severe osteoarthritis of the patellofemoral compartment with joint space narrowing and osteophyte formation. Milder changes are noted involving the medial and lateral compartments. There is a 2.1 cm loose body in the suprapatellar recess. XR/XR knee RT 3V IMPRESSION: Osteoarthritis as described. 2.1 cm loose body in the suprapatellar recess. Electronically signed by: Myron Parrish MD 07/02/2025 01:41 PM EDT
--- OUTSIDE RECORDS SUMMARY | 2025-07-03 08:50 | XMS_ITS | Clinical Summary ---
Author Organization [facility] Address [address] [place] [address] Care Team Providers Care Supervisor Cooler Service Name Role Phone Chelsea Vazquez NP Primary Care Provider [phone] Allergies Active Allergy Reactions Criticality Noted Date [...] age to complete this topic Care Teams Supervisor Cooler Service Relationship Specialty Start Date End Date Chelsea Vazquez NP [address] [place] [address] [facility] [place] [phone] PCP - General Family Medicine 10/26/21
--- OUTSIDE RECORDS SUMMARY | 2025-07-03 08:50 | XMS_ITS | Clinical Summary ---
Author Organization [employer] Address [address] [facility] [address] [place] [address] Care Team Providers Care Fur Dyer Name Role Phone Chelsea Vazquez Primary Care Provider [phone] Mariza Bazan MD Unavailable Allergies Active Allergy [...] Description 06/02/2025 10:00 AM EDT Office Visit [facility] MEDICAL [address] [place] [address] Mariza Bazan MD Pre-diabetes (Primary Dx); Primary hypertension; BMI 37.0-37.9, adult 05/26/2025 Travel 05/04/2025 12:15 PM EDT Clinical Support [facility] NUTRITION [address] [place] [address] Class 1 obesity due [...] Description 07/15/2025 11:00 AM EDT Clinical Support [facility] NUTRITION [address] [place] [address] Lynette Rodriguez, [place] [address] [place] [address] 09/03/2025 10:30 AM EDT Office Visit [facility] MEDICAL [address] [place] [address] Mariza Bazan MD [address] [place] [address] Health Maintenance Due Date Last Done Comments [...] Most Recently Relevant to Health Maintenance Insurance [facility] [employer] [place] [id number] Care Teams Fur Dyer Relationship Specialty Start Date End Date Chelsea Vazquez [address] [place] [id number] PCP - General 05/01/24 Mariza Bazan MD [address] [place] [id number] Referring Physician Internal Medicine 05/01/24
== END 2025-07-02 08:37 | disposition home or self-care (01) ==
LOC: HO.HOSX 08:36
PROVIDERS: Visit Provider Orthopaedic Surgery
DX: M25.561 Pain in right knee (principal); Z79.899 Other long term (current) drug therapy
CPT/HCPCS: 73562; 99212

== ENCOUNTER 2025-07-02 10:33 | Outpatient (AMB) | payer MEDICARE, SELFPAY ==
--- NOTE | 2025-07-02 11:01 | MHC.OFFVIS ---
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 The patient did have a cortisone injection given into her right knee approximately 1 month ago. She got fairly good relief from the injection. She has tried Tylenol and anti-inflammatory medicines which gave her only mild relief. She did undergo right knee arthroscopic surgery approximately 10 years ago. She got fairly good relief from that procedure initially. Allergies meperidine (From Demerol) Allergy (Verified 07/02/25 11:15) Vomiting medrol dose pack Allergy (Uncoded 07/02/25 11:15) Hypertension Medication List - Last Reconciled 07/02/25 by Daniel Gore MD amlodipine 5 mg PO DAILY atorvastatin 10 mg PO DAILY bupropion HCl XL 150 mg PO QAM escitalopram oxalate 10 mg PO DAILY levothyroxine 150 mcg PO .6x a week meloxicam 7.5 mg PO DAILY methocarbamol 500 mg PO TID PRN naltrexone 25 mg PO DAILY secukinumab (Cosentyx 300 mg/2 Syringes () mg subcut tramadol 50 mg PO Q8H PRN PFSH Medical History (Updated 06/26/25 @ 09:05 by Daniel Gore MD) Arthritis High cholesterol Hypertension Hypothyroid Surgical History H/O: section History of cholecystectomy Status post carpal tunnel release of both wrists History of right knee surgery Social History (Updated 07/02/25 @ 11:18 by WOODY Erickson) 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 status: 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 Physical Exam Vital Signs: BMI result Body Mass Index 34.0 Const Other: Well-nourished well-developed very friendly female awake alert and oriented x3 in no acute distress Extrem Other: Right knee examination shows a minimal effusion, palpable crepitus with range of motion, pain with range of motion, no instability Results Reviewed Results Reviewed: X-rays of the patient's right knee taken today show moderate to severe degenerative changes most significant in her patellofemoral joint, no acute bony abnormalities Assessment & Plan Assessment & Plan (1) Right knee pain: Code(s): M25.561 - Pain in right knee Category: Medical Plan Mrs. Chavez presents with right knee pain due to degenerative joint disease. I had a lengthy discussion with the patient regarding the treatment options. At this point her symptoms are tolerable to her. I did give her a prescription for tramadol. She will contact me prior to her follow-up appointment in 2 months should any questions or concerns arise. Feel free to call me at any time should questions regarding her orthopedic management arise. I spent 22 minutes in reviewing the patient's records and imaging studies, seeing the patient and documenting in the medical record. Orders: Orders XR knee RT 3V Today M25.561 - Pain in right knee Medications: New tramadol 50 mg PO Q8H PRN 40 tabs 0RF pain Coding Level of Care Code Est Pt Level 3 (94530) Complex EM visit Add On G2211 Diagnoses Right knee pain M25.561
[2025-07-02 11:09] VITALS: BMI 34.0
--- OUTSIDE RECORDS SUMMARY | 2025-07-02 11:40 | XMS_ITS | Clinical Summary ---
Author Organization [email or web address] Address [address] [facility] 7t [place] [address] Care Team Providers Care Patrol Supervisor Name Role Phone Chelsea Vazquez Primary Care Provider [phone] Mariza Bazan MD Unavailable Allergies Active Allergy Reactions Criticality Noted Date Comments Meperidine Vomiting High 11/08/2021 Meperidine Hcl Vomiting High 07/22/2024 Methylprednisolone Other 11/08/2021 Stroke level BP Medications secukinumab (Cosentyx Sensoready Pen) 150 MG/ML self-injector pen Inject 150 mg under the skin. 01/08/2023 Active amLODIPine (Norvasc) 2.5 MG tablet Take [...] mcg by mouth Once per day. Active naltrexone (Depade) 50 MG tabletIndicatio ns:BMI 37.0-37.9, adult,Pre-diabe javid Take 1 tablet (50 mg) by mouth Once per day. 90 tablet 3 12/25/2024 12/25/19 Active buPROPion XL (Wellbutrin XL) 300 MG 24 hr tabletIndicatio ns:BMI 37.0-37.9, adult,Pre-diabe javid Take 1 tablet (300 mg) by mouth in the morning. Do not crush, chew, or split. 90 tablet 3 03/31/2025 03/31/20 26 Active Active Problems Problem Noted Date [...] Encounters Date Type Department Care Team Description 06/02/2025 10:00 AM EDT Office Visit [facility] MEDICAL [address] [place] [address] Mariza Bazan MD Pre-diabetes (Primary Dx); Primary hypertension; BMI 37.0-37.9, adult 05/26/2025 Travel 05/04/2025 12:15 PM EDT Clinical Support [facility] NUTRITION [address] [place] [address] Class 1 obesity due to excess calories without serious comorbidity with body mass index (BMI) of 31.0 to 31.9 in adult (Primary Dx); Prediabetes 05/04/2025 Travel 04/28/2025 Travel from Last 3 Months Social History [...] Sign Reading Time Taken Comments Blood Pressure 108/75 06/02/2025 10:01 AM EDT Pulse 65 06/02/2025 10:01 AM EDT Temperature 36.4 C (97.5 F) 06/02/2025 10:01 AM EDT Respiratory Rate 16 06/02/2025 10:0 1 AM EDT Oxygen Saturation - - Inhaled Oxygen Concentration - - Weight 80.6 kg (177 lb 11.2 oz) 025 10:01 AM EDT Height 162.6 cm (5' 4 ) 06/02/2025 10:0 1 AM EDT Body Mass Index 30.5 06/02/2025 10:01 AM EDT Plan of Treatment Upcoming Encounters Date Type Department Care Team (Late st Contact Info) Description 07/15/2025 11:00 AM EDT Clinical Support [facility] NUTRITION [address] [place] [address] Lynette Rodriguez, NEVILLE [address] [place] [address] 09/03/2025 10:30 AM EDT Office Visit [facility] MEDICAL [address] [place] [address] Mariza Bazan MD [address] [place] [address] Health Maintenance Due Date Last Done Comments CT Colonography 1954 Colonoscopy 1954 Colorectal Cancer Screening 1954 Depression Screening 1954 FIT DNA/Cologuard 1954 FIT 1954 FOBT 1954 SDOH Screening 1954 Sigmoidoscopy 1954 Alcohol/Substance Use Screening 1966 Hepatitis C Screening 1972 DTaP/Tdap/Td Vaccines (1 - Tdap) 1973 Mammogram 1994 COVID-19 Vaccine ( season) 2024 09/11/2022, 09/22/2021, 02/19/2021, Additional history exists Influenza Vaccine (#1) 2025 4, 10/15/2023, 09/11/2022, Additional history exists Tobacco Screening 08/29/2025 08/29/2024 Diabetes: Hemoglobin A1C 03/31/2026 025, 12/25/2024, 07/22/2024 Lipid Panel 07/08/2029 07/08/2024 RSV Patients and Patients Aged 60 years or older (1 - 1-dose 75+ series) 2029 Zoster Vaccines Completed 12/08/2020, 10/06/2020 Pneumococcal Vaccine: 50+ Years Completed 12/08/2021, 09/02/2020 HIB Vaccines Aged Out No longer eligi [...] specimen / Unknown 03/31/2025 12:50 PM EDT Mariza Bazan MD POINT OF CARE TEST ENTER/EDIT OR DERABLES Final Result * Lipid Panel, Standard (07/08/2024 9:45 AM EDT) Blood Venous blood specimen / Unknown Mariza Bazan MD LAB BLOOD ORDERABLES Final Resul t from Last 3 Months or Most Recently Relevant to Health Maintenance Insurance [facility] MEDEX CARE [place] [id number] Care Teams Patrol Supervisor Relationship Specialty Start Date End Date Chelsea Vazquez [address] [place] [id number] PCP - General 05/01/24 Mariza Bazan MD [address] [place] [id number] Referring Physician Internal Medicine 05/01/24
--- OUTSIDE RECORDS SUMMARY | 2025-07-02 11:40 | XMS_ITS | Clinical Summary ---
Author Organization [facility] Address [address] [place] [address] Care Team Providers Care Commissioner Of Conciliation Name Role Phone Chelsea Vazquez NP Primary Care Provider [phone] Allergies Active Allergy Reactions Criticality Noted Date [...] 1 - PCV) 2019 Influenza Vaccine (#1) 2025 RSV Adult > 60+ Yrs or Pregn ant (1 - 1-dose 75+ series) 2029 Hepatitis B Vaccines Aged Out No long er eligible based on patient's age to complete this topic RSV Ped < 20 months Aged Out No longe r eligible based on patient's age to complete this topic Care Teams Commissioner Of Conciliation Relationship Specialty Start Date End Date Chelsea Vazquez NP [address] [place] [address] [facility] [place] [id number] PCP - General Family Medicine 10/26/21
== END 2025-07-02 11:28 | disposition home or self-care (01) ==
LOC: HO.HOS 10:35
PROVIDERS: PCP Nurse Practitioner Family; Visit Provider Orthopaedic Surgery
DX: M25.561 Pain in right knee (principal)
CPT/HCPCS: 99213; G2211

== ENCOUNTER → 2025-07-02 10:57 | Outpatient (BNV) | payer MEDICARE, SELFPAY | PROVIDERS: Visit Provider Radiology Diagnostic Radiology | DX: M17.11 Unilateral primary osteoarthritis, right knee (principal) | CPT/HCPCS: 73562 ==